=== PATIENT | male | born 1960 | race Caucasian/White ===

== ENCOUNTER 2017-10-05 18:24 | Emergency (ER) | payer MEDICARE, MEDICAID ==
[~2017-10-05] VITALS: Ht 185.4 cm; Wt 80.0 kg
[~2017-10-05 18:24] MED LIST: CARB200T PO; CLON2TAB PO; METH-356 PO; MULT-6 PO; OXYC5TAB3 PO
[2017-10-05 18:36] VITALS: BP 110/61
== END 2017-10-05 20:46 | disposition home or self-care (01) ==
LOC: ED 19:16
DX: F15.10 Other stimulant abuse, uncomplicated (principal); F41.9 Anxiety disorder, unspecified
CPT/HCPCS: 99283; 99284

== ENCOUNTER 2017-10-09 16:30 | Observation (INO) | payer MEDICARE, MEDICAID ==
[~2017-10-09] VITALS: Ht 185.4 cm; Wt 70.2 kg
[2017-10-09 17:17] LABS: BASOPHILS # (AUTO) 0.04 x10^3/uL (0-0.1); BASOPHILS % (AUTO) 1 % (0-1); EOSINOPHILS # (AUTO) 0.04 x10^3/uL (0-0.4); EOSINOPHILS % (AUTO) 1 % (1-7); LYMPHOCYTES # (AUTO) 1.54 x10^3/uL (1-3.4); LYMPHOCYTES % (AUTO) 19 % (22-44); MD NO; MEAN CORPUSCULAR HEMOGLOBIN 31.8 pg (27.5-34.5); MEAN CORPUSCULAR HGB CONC 33.5 g/dL (33.2-36.2); MEAN PLATELET VOLUME 7.8 fL (7.4-10.4); MONOCYTES # (AUTO) 1.09 x10^3/uL (0.2-0.8); MONOCYTES % (AUTO) 14 % (2-9); NEUTROPHILS # (AUTO) 5.32 x10^3/uL (1.8-6.8); NEUTROPHILS % (AUTO) 66 % (42-75); PLATELET COUNT 256 x10^3/uL (130-400); RED BLOOD COUNT 4.29 x10^6/uL (4.38-5.82); RED CELL DISTRIBUTION WIDTH 15.5 % (9.4-14.8)
[2017-10-09 17:22] LABS: CULTURE INDICATED? NO; MICROSCOPIC NOT IND
[2017-10-09 17:29] LABS: ALBUMIN 3.3 g/dL (3.4-5.0); ANION GAP 8 mmol/L (5-15); CALCIUM 8.8 mg/dL (8.5-10.1); CHLORIDE 102 mmol/L (98-107); CREATININE 0.88 mg/dL (0.7-1.3)
[2017-10-09 17:32] LABS: AMPHETAMINE SCREEN, URINE Negative (Negative); BARBITURATE SCREEN, URINE Negative (Negative); BENZODIAZEPINE SCREEN, URINE Negative (Negative); CANNABINOID SCREEN, URINE Negative (Negative); COCAINE SCREEN, URINE Negative (Negative); METHADONE SCREEN, URINE Negative (Negative); OPIATE SCREEN, URINE Positive (Negative)
[2017-10-09 17:35] LABS: ACETAMINOPHEN < 2 mcg/mL (10-30); SALICYLATE LEVEL < 1.7 mg/dL (2.8-20.0)
[2017-10-09] MEDS ORDERED: DOCUSATE 100 MG CAPSULE PO PRN (20:00)
[2017-10-09] MEDS ORDERED: ACETAMINOPHEN 325 MG TABLET PO PRN (20:00)
[2017-10-09] MEDS ORDERED: DIPHENHYDRAMINE 50 MG CAPSULE PO PRN (20:00)
[2017-10-09] MEDS ORDERED: PRAM0.5T5 PO (20:10)
[2017-10-09] MEDS ORDERED: ZIPRASIDONE 20 MG INJ IM ONE (21:25)
[2017-10-09] MEDS: PRAMIPEXOLE 0.5MG TABLET PO SCH (21:32)
[2017-10-09] MEDS: QUETIAPINE 25MG TABLET PO SCH (21:32)
[2017-10-09] MEDS: ZIPRASIDONE 20 MG INJ IM PRN (21:32)
[2017-10-10] MEDS ORDERED: ZIPRASIDONE 20 MG INJ IM ONE (06:22)
[2017-10-10] MEDS: ZIPRASIDONE 20 MG INJ IM PRN ×2 (06:29→23:16)
[2017-10-10] MEDS: PRAMIPEXOLE 0.5MG TABLET PO SCH (09:28)
[2017-10-10] MEDS: QUETIAPINE 25MG TABLET PO SCH ×2 (09:28→20:14)
[2017-10-10 19:27] VITALS: BP 103/68
[2017-10-11 07:37] VITALS: BP 123/80
[2017-10-11] MEDS: QUETIAPINE 25MG TABLET PO SCH (07:55)
[2017-10-11] MEDS: PRAMIPEXOLE 0.5MG TABLET PO SCH (07:56)
[2017-10-11] MEDS: QUETIAPINE 25MG TABLET PO PRN ×2 (09:38→15:15)
[2017-10-11] MEDS: DIPHENHYDRAMINE 50 MG CAPSULE PO PRN (09:38)
[2017-10-11] MEDS ORDERED: GUAIFENESIN 200 MG TABLET PO PRN (11:30)
[2017-10-11 19:18] VITALS: BP 113/67
[2017-10-11] MEDS: CARBAMAZEPINE 200 MG TABLET PO SCH (20:05)
[2017-10-11] MEDS: QUETIAPINE 100MG TABLET PO SCH (20:08)
[2017-10-12 07:08] VITALS: BP 110/62
[2017-10-12] MEDS: PRAMIPEXOLE 0.5MG TABLET PO SCH (08:18)
[2017-10-12] MEDS: CARBAMAZEPINE 200 MG TABLET PO SCH ×2 (08:18→20:54)
[2017-10-12 12:37] LABS: ALBUMIN 3.2 g/dL (3.4-5.0)
[2017-10-12 12:39] LABS: TOTAL PROTEIN 6.5 g/dL (6.4-8.2)
[2017-10-12] MEDS: GUAIFENESIN/DM 200-20MG, 10ML UDC PO PRN ×2 (14:20→21:13)
[2017-10-12] MEDS: LORazepam 1MG TABLET PO PRN (14:59)
[2017-10-12 20:13] VITALS: BP 110/70
[2017-10-12] MEDS: QUETIAPINE 100MG TABLET PO SCH (20:55)
[2017-10-13] MEDS: LORazepam 1MG TABLET PO PRN ×2 (05:59→15:39)
[2017-10-13] MEDS: GUAIFENESIN/DM 200-20MG, 10ML UDC PO PRN (06:00)
[2017-10-13 07:45] VITALS: BP 116/77
[2017-10-13] MEDS: PRAMIPEXOLE 0.5MG TABLET PO SCH (08:05)
[2017-10-13] MEDS: QUETIAPINE 25MG TABLET PO PRN (08:06)
[2017-10-13] MEDS: CARBAMAZEPINE 200 MG TABLET PO SCH ×2 (08:06→20:32)
[2017-10-13 20:02] VITALS: BP 115/71
[2017-10-13] MEDS: QUETIAPINE 100MG TABLET PO SCH (20:32)
[2017-10-14 07:52] VITALS: BP 117/74
[2017-10-14] MEDS: PRAMIPEXOLE 0.5MG TABLET PO SCH (08:21)
[2017-10-14] MEDS: CARBAMAZEPINE 200 MG TABLET PO SCH ×2 (08:21→20:04)
[2017-10-14] MEDS: GUAIFENESIN/DM 200-20MG, 10ML UDC PO PRN (08:24)
[2017-10-14 15:00] VITALS: BP 133/76
[2017-10-14] MEDS: LORazepam 1MG TABLET PO PRN (15:04)
[2017-10-14 19:53] VITALS: BP 122/72
[2017-10-14] MEDS: QUETIAPINE 100MG TABLET PO SCH (20:05)
[2017-10-15] MEDS: LORazepam 1MG TABLET PO PRN ×2 (03:40→09:19)
[2017-10-15] MEDS: GUAIFENESIN/DM 200-20MG, 10ML UDC PO PRN (03:44)
[2017-10-15 05:54] LABS: ANION GAP 5 mmol/L (5-15); CALCIUM 8.3 mg/dL (8.5-10.1); CHLORIDE 102 mmol/L (98-107)
[2017-10-15 05:55] LABS: CREATININE 0.76 mg/dL (0.7-1.3)
[2017-10-15 07:52] VITALS: BP 121/72
[2017-10-15] MEDS: PRAMIPEXOLE 0.5MG TABLET PO SCH (08:07)
[2017-10-15] MEDS: CARBAMAZEPINE 200 MG TABLET PO SCH ×2 (08:07→20:08)
[2017-10-15] MEDS: LORazepam 0.5MG TABLET PO PRN (18:02)
[2017-10-15 19:29] VITALS: BP 117/67
[2017-10-15] MEDS: QUETIAPINE 100MG TABLET PO SCH (20:08)
[2017-10-16] MEDS: DIPHENHYDRAMINE 50 MG CAPSULE PO PRN ×2 (04:40→14:57)
[2017-10-16 07:21] VITALS: BP 120/84
[2017-10-16] MEDS: CARBAMAZEPINE 200 MG TABLET PO SCH ×2 (09:54→20:08)
[2017-10-16] MEDS: PRAMIPEXOLE 0.5MG TABLET PO SCH (09:54)
[2017-10-16 20:00] VITALS: BP 113/69
[2017-10-16] MEDS: LORazepam 0.5MG TABLET PO PRN (20:08)
[2017-10-16] MEDS ORDERED: QUETIAPINE 100MG TABLET PO SCH (21:00)
[2017-10-17] MEDS: GUAIFENESIN/DM 200-20MG, 10ML UDC PO PRN (04:19)
[2017-10-17 07:02] VITALS: BP 125/77
[2017-10-17] MEDS: CARBAMAZEPINE 200 MG TABLET PO SCH ×2 (08:36→20:08)
[2017-10-17] MEDS: PRAMIPEXOLE 0.5MG TABLET PO SCH (08:36)
[2017-10-17 19:39] VITALS: BP 111/68
[2017-10-17] MEDS ORDERED: QUETIAPINE 100MG TABLET PO SCH (21:00)
[2017-10-18 07:18] VITALS: BP 104/70
[2017-10-18] MEDS: PRAMIPEXOLE 0.5MG TABLET PO SCH (08:11)
[2017-10-18] MEDS: CARBAMAZEPINE 200 MG TABLET PO SCH (08:11)
[2017-10-18] MEDS ORDERED: LORA-445 PO (10:56)
[2017-10-18] MEDS ORDERED: CARB200T4 PO (10:56)
[2017-10-18] MEDS ORDERED: QUET100T PO (10:56)
== END 2017-10-18 12:30 ==
LOC: ED 17:02 → EDIP 18:02 → 2N 10-10 18:07
PROVIDERS: ADMIT Internal Medicine; ATTEND Internal Medicine
DX: R45.851 Suicidal ideations (principal); F33.2 Major depressive disorder, recurrent severe without psychotic features; F31.81 Bipolar II disorder; G89.29 Other chronic pain; M54.9 Dorsalgia, unspecified; F11.90 Opioid use, unspecified, uncomplicated; D64.9 Anemia, unspecified; E87.1 Hypo-osmolality and hyponatremia; E44.1 Mild protein-calorie malnutrition; F17.200 Nicotine dependence, unspecified, uncomplicated; Z81.1 Family history of alcohol abuse and dependence
CPT/HCPCS: 36415; 71045; 80048; 80307; 80329; 81003; 82040; 84155; 85025; 96372; 99285; G0378; J3486; G0480

== ENCOUNTER 2017-11-21 18:12 | Emergency (ER) | payer MEDICARE, MEDICAID ==
[~2017-11-21] VITALS: Ht 180.3 cm; Wt 77.5 kg
[~2017-11-21 18:12] MED LIST changes: +CARB200T4 PO; +LORA-445 PO; +PRAM0.5T5 PO; +QUET100T PO
[2017-11-21] MEDS ORDERED: hydrOXYzine 50 MG/ML IM PRN (18:30)
[2017-11-21] MEDS ORDERED: DIAZEPAM 5 MG TABLET PO ONE (18:30)
[2017-11-21] MEDS ORDERED: DIAZEPAM 5 MG TABLET ONE (18:45)
[2017-11-21 20:03] VITALS: BP 129/79
== END 2017-11-21 20:07 | disposition home or self-care (01) ==
LOC: ED 19:38
DX: M54.5 Low back pain (principal); G89.29 Other chronic pain
CPT/HCPCS: 96372; 99283; J3410

== ENCOUNTER 2018-03-15 12:12 | Emergency (ER) | payer MEDICARE, MEDICAID ==
[~2018-03-15] VITALS: Ht 180.3 cm; Wt 77.4 kg
[2018-03-15 12:21] VITALS: BP 92/60
[2018-03-15] MEDS ORDERED: HYDROmorphone 2 MG/ML, 1ML ONE (13:11)
[2018-03-15] MEDS ORDERED: KETOROLAC 30 MG/1 ML ONE (13:12)
[2018-03-15] MEDS ORDERED: KETOROLAC 30 MG/1 ML IM ONE (13:30)
[2018-03-15] MEDS ORDERED: HYDROmorphone 1 MG/ML, 1ML IM ONE (13:30)
== END 2018-03-15 14:10 | disposition home or self-care (01) ==
LOC: ED 13:13
DX: M54.5 Low back pain (principal); F20.9 Schizophrenia, unspecified; F32.9 Major depressive disorder, single episode, unspecified; F17.200 Nicotine dependence, unspecified, uncomplicated
CPT/HCPCS: 96372; 99284; J1170; J1885

== ENCOUNTER 2018-04-06 23:49 | Observation (INO) | payer MEDICARE, MEDICAID ==
[~2018-04-06] VITALS: Ht 182.9 cm; Wt 81.8 kg
[2018-04-07 00:06] VITALS: BP 119/82
[2018-04-07 00:07] LABS: BASOPHILS # (AUTO) 0.03 x10^3/uL (0-0.1); BASOPHILS % (AUTO) 1 % (0-1); EOSINOPHILS # (AUTO) 0.06 x10^3/uL (0-0.4); EOSINOPHILS % (AUTO) 1 % (1-7); LYMPHOCYTES # (AUTO) 0.85 x10^3/uL (1-3.4); LYMPHOCYTES % (AUTO) 16 % (22-44); MD NO; MEAN CORPUSCULAR HEMOGLOBIN 31.6 pg (27.5-34.5); MEAN CORPUSCULAR HGB CONC 33.4 g/dL (33.2-36.2); MEAN CORPUSCULAR VOLUME 94.6 fL (81-97); MEAN PLATELET VOLUME 8.1 fL (7.4-10.4); MONOCYTES # (AUTO) 0.87 x10^3/uL (0.2-0.8); MONOCYTES % (AUTO) 17 % (2-9); NEUTROPHILS # (AUTO) 3.36 x10^3/uL (1.8-6.8); NEUTROPHILS % (AUTO) 65 % (42-75); PLATELET COUNT 255 x10^3/uL (130-400); RED BLOOD COUNT 4.12 x10^6/uL (4.38-5.82); RED CELL DISTRIBUTION WIDTH 14.8 % (9.4-14.8)
[2018-04-07 00:16] LABS: ALANINE AMINOTRANSFERASE 33 U/L (12-78); ANION GAP 10 mmol/L (5-15); CALCIUM 9.2 mg/dL (8.5-10.1); CHLORIDE 110 mmol/L (98-107); CREATININE 0.92 mg/dL (0.7-1.3); SALICYLATE LEVEL < 1.7 mg/dL (2.8-20.0)
[2018-04-07 00:18] LABS: ALKALINE PHOSPHATASE 111 U/L (45-117); BILIRUBIN,TOTAL 0.5 mg/dL (0.2-1.0); TOTAL PROTEIN 7.5 g/dL (6.4-8.2)
[2018-04-07 00:19] LABS: ACETAMINOPHEN < 2 mcg/mL (10-30)
[2018-04-07] MEDS ORDERED: QUETIAPINE 25MG TABLET PO PRN (04:30)
[2018-04-07] MEDS ORDERED: DOCUSATE 100 MG CAPSULE PO PRN (04:30)
[2018-04-07] MEDS ORDERED: ONDANSETRON ODT 4 MG PO PRN (04:30)
[2018-04-07] MEDS ORDERED: ACETAMINOPHEN 325 MG TABLET PO PRN (04:30)
[2018-04-07] MEDS ORDERED: QUETIAPINE 100MG TABLET PO SCH (04:30)
[2018-04-07] MEDS ORDERED: PRAMIPEXOLE 0.5MG TABLET PO SCH (04:30)
[2018-04-07] MEDS ORDERED: LORazepam 0.5MG TABLET PO PRN (04:30)
[2018-04-07] MEDS ORDERED: CARBAMAZEPINE 200 MG TABLET PO SCH (04:30)
[2018-04-07] MEDS ORDERED: CARBAMAZEPINE 200 MG TABLET ONE (06:08)
[2018-04-07] MEDS ORDERED: QUETIAPINE 100MG TABLET ONE (06:09)
== END 2018-04-07 08:30 ==
LOC: ED 23:59 → EDIP 04-07 01:35
PROVIDERS: ADMIT Internal Medicine; ATTEND Internal Medicine
DX: F29 Unspecified psychosis not due to a substance or known physiological condition (principal); F31.60 Bipolar disorder, current episode mixed, unspecified; F20.9 Schizophrenia, unspecified; F43.10 Post-traumatic stress disorder, unspecified; G25.81 Restless legs syndrome; G40.909 Epilepsy, unspecified, not intractable, without status epilepticus; Z91.14 Patient's other noncompliance with medication regimen
CPT/HCPCS: 36415; 80053; 80307; 80329; 84443; 85025; 99285; G0378; G0480

== ENCOUNTER 2018-04-24 17:17 | Emergency (ER) | payer MEDICARE, MEDICAID ==
[~2018-04-24] VITALS: Ht 180.3 cm; Wt 71.0 kg
[2018-04-24 20:00] VITALS: BP 125/74
== END 2018-04-24 20:40 | disposition home or self-care (01) ==
LOC: ED 20:34
DX: G89.29 Other chronic pain (principal); M54.9 Dorsalgia, unspecified; L55.1 Sunburn of second degree; F20.9 Schizophrenia, unspecified; G40.909 Epilepsy, unspecified, not intractable, without status epilepticus; R20.0 Anesthesia of skin; F10.20 Alcohol dependence, uncomplicated; Z72.89 Other problems related to lifestyle; Z91.14 Patient's other noncompliance with medication regimen; Z60.9 Problem related to social environment, unspecified; Z59.0 Homelessness
CPT/HCPCS: 99283

== ENCOUNTER 2018-09-07 14:39 | Observation (INO) | payer MEDICARE, MEDICAID ==
[~2018-09-07] VITALS: Ht 180.3 cm; Wt 68.2 kg
[2018-09-07] MEDS ORDERED: ZIPRASIDONE 20MG CAPSULE PO ONE ×2 (15:00→16:00)
[2018-09-07] MEDS ORDERED: PLEASE ENTER HEIGHT AND WEIGHT MC SCH (15:00)
[2018-09-07 15:12] LABS: BASOPHILS # (AUTO) 0.02 x10^3/uL (0-0.1); BASOPHILS % (AUTO) 0 % (0-1); EOSINOPHILS # (AUTO) 0.12 x10^3/uL (0-0.4); EOSINOPHILS % (AUTO) 2 % (1-7); LYMPHOCYTES # (AUTO) 1.42 x10^3/uL (1-3.4); LYMPHOCYTES % (AUTO) 28 % (22-44); MD NO; MEAN CORPUSCULAR HEMOGLOBIN 32.7 pg (27.5-34.5); MEAN CORPUSCULAR VOLUME 96.2 fL (81-97); MEAN PLATELET VOLUME 8.5 fL (7.4-10.4); MONOCYTES # (AUTO) 0.81 x10^3/uL (0.2-0.8); MONOCYTES % (AUTO) 16 % (2-9); NEUTROPHILS # (AUTO) 2.81 x10^3/uL (1.8-6.8); NEUTROPHILS % (AUTO) 54 % (42-75); PLATELET COUNT 182 x10^3/uL (130-400); RED BLOOD COUNT 3.94 x10^6/uL (4.38-5.82); RED CELL DISTRIBUTION WIDTH 14.1 % (9.4-14.8)
[2018-09-07 15:20] LABS: ALBUMIN 3.4 g/dL (3.4-5.0); ANION GAP 5 mmol/L (5-15); CALCIUM 8.2 mg/dL (8.5-10.1); CHLORIDE 100 mmol/L (98-107)
[2018-09-07 15:23] LABS: ALANINE AMINOTRANSFERASE 39 U/L (12-78); ALKALINE PHOSPHATASE 98 U/L (45-117); BILIRUBIN,TOTAL 0.2 mg/dL (0.2-1.0); CREATININE 0.81 mg/dL (0.7-1.3); TOTAL PROTEIN 6.7 g/dL (6.4-8.2)
[2018-09-07 15:28] LABS: ACETAMINOPHEN < 2 mcg/mL (10-30); SALICYLATE LEVEL < 1.7 mg/dL (2.8-20.0)
[2018-09-07] MEDS ORDERED: ZIPRASIDONE 20MG CAPSULE ONE ×2 (15:52→15:57)
[2018-09-07 16:16] LABS: AMPHETAMINE SCREEN, URINE Negative (Negative); BARBITURATE SCREEN, URINE Negative (Negative); BENZODIAZEPINE SCREEN, URINE Negative (Negative); CANNABINOID SCREEN, URINE Negative (Negative); COCAINE SCREEN, URINE Negative (Negative); METHADONE SCREEN, URINE Negative (Negative); OPIATE SCREEN, URINE Negative (Negative)
[2018-09-07] MEDS ORDERED: ACETAMINOPHEN 325 MG TABLET PO PRN (19:30)
[2018-09-07] MEDS ORDERED: DOCUSATE 100 MG CAPSULE PO PRN (19:30)
[2018-09-07] MEDS ORDERED: ZIPRASIDONE 20MG CAPSULE PO PRN (19:30)
[2018-09-07] MEDS ORDERED: DIPHENHYDRAMINE 50 MG CAPSULE PO PRN (19:30)
[2018-09-07 20:15] VITALS: BP 158/77
[2018-09-07] MEDS ORDERED: QUETIAPINE 100MG TABLET PO SCH (21:00)
[2018-09-07] MEDS ORDERED: PRAMIPEXOLE 0.5MG TABLET PO SCH (21:00)
[2018-09-07] MEDS ORDERED: CARBAMAZEPINE 200 MG TABLET PO SCH ×2 (21:00→22:30)
[2018-09-07] MEDS: QUETIAPINE 100MG TABLET PO SCH ×2 (21:00→21:11)
[2018-09-07 23:54] VITALS: BP 110/64
[2018-09-08 08:00] VITALS: BP 109/74
== END 2018-09-08 13:30 ==
LOC: ED 15:16 → SUATTDRO 19:01 → EDIP 19:03 → INTOOBSV 19:03 → 2N 19:52
PROVIDERS: ADMIT Family Medicine; ATTEND Family Medicine
DX: R45.851 Suicidal ideations (principal); F31.9 Bipolar disorder, unspecified; F20.9 Schizophrenia, unspecified; G89.29 Other chronic pain; J00 Acute nasopharyngitis [common cold]; G40.909 Epilepsy, unspecified, not intractable, without status epilepticus; G25.81 Restless legs syndrome; Z87.891 Personal history of nicotine dependence; Z91.14 Patient's other noncompliance with medication regimen
CPT/HCPCS: 36415; 71045; 80053; 80307; 80329; 85025; 93005; 99284; G0378; G0480

== ENCOUNTER 2019-11-20 12:05 | Emergency (ER) | payer MEDICARE, MEDICAID ==
[~2019-11-20] VITALS: Ht 180.3 cm; Wt 74.0 kg
[~2019-11-20 12:05] MED LIST changes: -METH-356 PO; +METH10TA2 PO
--- NOTE | 2019-11-20 12:43 | NUR ---
PT WITH SI. PT STATES HE DOESNT WANT TO LIVE ANYMORE, PT PLAN TO SHOOT HIMSELF WITH HIS GUN. PT STATES HE HAS BEEN FEELING REALLY BAD AND NEEDS HELP. PT WITH PREVIOUS HX OF SA/SI. HX OF BIPOLAR, PT DENIES SCHIZ ALTHOUGH IN PREVIOUS CHART. PT STATES NOT CURRENTLY ON MEDICATIONS PT TO SECURE RM, BELONGINGS (1 PT BELONGING BAG) PLACED IN SECURE LOCKER. GLUING CREW LEADER MADE AWARE OF NEED FOR SITTER
[2019-11-20 12:54] LABS: BASOPHILS # (AUTO) 0.02 x10^3/uL (0-0.1); BASOPHILS % (AUTO) 0 % (0-1); EOSINOPHILS # (AUTO) 0.14 x10^3/uL (0-0.4); EOSINOPHILS % (AUTO) 3 % (1-7); LYMPHOCYTES # (AUTO) 1.29 x10^3/uL (1-3.4); LYMPHOCYTES % (AUTO) 23 % (22-44); MD NO; MEAN CORPUSCULAR HEMOGLOBIN 31.2 pg (27.5-34.5); MEAN CORPUSCULAR HGB CONC 32.7 g/dL (33.2-36.2); MEAN CORPUSCULAR VOLUME 95.3 fL (81-97); MEAN PLATELET VOLUME 7.3 fL (7.4-10.4); MONOCYTES # (AUTO) 0.61 x10^3/uL (0.2-0.8); MONOCYTES % (AUTO) 11 % (2-9); NEUTROPHILS # (AUTO) 3.61 x10^3/uL (1.8-6.8); NEUTROPHILS % (AUTO) 64 % (42-75); PLATELET COUNT 240 x10^3/uL (130-400); RED BLOOD COUNT 3.96 x10^6/uL (4.38-5.82); RED CELL DISTRIBUTION WIDTH 14.6 % (9.4-14.8)
[2019-11-20 13:07] LABS: ALBUMIN 3.4 g/dL (3.4-5.0); ANION GAP 5 mmol/L (5-15); CALCIUM 8.6 mg/dL (8.5-10.1); CHLORIDE 103 mmol/L (98-107)
[2019-11-20 13:20] LABS: ALANINE AMINOTRANSFERASE 47 U/L (12-78); ALKALINE PHOSPHATASE 111 U/L (45-117); BILIRUBIN,TOTAL 0.4 mg/dL (0.2-1.0); CREATININE 0.71 mg/dL (0.7-1.3); TOTAL PROTEIN 6.9 g/dL (6.4-8.2)
[2019-11-20 13:23] LABS: SALICYLATE LEVEL < 1.7 mg/dL (2.8-20.0)
[2019-11-20 13:39] LABS: AMPHETAMINE SCREEN, URINE Positive (Negative); BARBITURATE SCREEN, URINE Negative (Negative); BENZODIAZEPINE SCREEN, URINE Negative (Negative); CANNABINOID SCREEN, URINE Negative (Negative); COCAINE SCREEN, URINE Negative (Negative); METHADONE SCREEN, URINE Negative (Negative); OPIATE SCREEN, URINE Negative (Negative)
--- NOTE | 2019-11-20 18:06 | NUR ---
DENIED BY [facility]. PACKET FAXED TO [facility], [facility] AND [facility]
--- NOTE | 2019-11-20 19:00 | NUR ---
Assumed care of pt from Lavonne BLOOD.
--- NOTE | 2019-11-20 19:01 | NUR ---
TP: PT NOT ACCEPTED BY [facility]
--- NOTE | 2019-11-20 19:56 | NUR ---
Pt continues to sleep.
--- NOTE | 2019-11-20 22:57 | NUR ---
Pt now awake and requesting food. Pt given yeyo crackers and juice. When asked if he currerntly wants to hurt himself, pt stated "I'm not thinking about that right now".
--- NOTE | 2019-11-21 05:45 | NUR ---
Pt assessed for SI. Pt denies any current SI but states he has "a black cloud of depression over my head".
--- NOTE | 2019-11-21 07:00 | NUR ---
assumed care of pt. report from Zi BLOOD. pt here for SI. per report, pt has a plan of suicide by copy technician. pt is currently sleeping with sitter present. room secure. awaiting psych placement
--- NOTE | 2019-11-21 07:20 | NUR ---
p is awake and has walked to the BR without difficulty. pt reports that he is still suicidal and that he feels very depressed. pt reports that he has a hx of bipolar disorder bu is non-compliant with meds. denies hallucinations/delusions. reports that he has a hx of suicide attempt x2 by cuting a pill OD. pt updated on POC and aware that he is awaiting placement. no family at bedside. sitter present and room secure.
--- NOTE | 2019-11-21 08:30 | NUR ---
meal tray has been delivered. sitte present. room secure
--- NOTE | 2019-11-21 09:03 | NUR ---
pt resting in position of comfort
--- NOTE | 2019-11-21 10:00 | NUR ---
no changes. pt resting quietly in position of comfort. room secure. sitter present
--- NOTE | 2019-11-21 11:00 | NUR ---
no changes. pt sitting up in room. no apparent distress. PO snack given. room secure. sitter present
--- NOTE | 2019-11-21 12:00 | NUR ---
p very anxious. attempting to calm pt. pt updated on POC. awaiing meal tray. room secure. siter present
--- NOTE | 2019-11-21 12:10 | NUR ---
report to Estelita BLOOD for lunch
--- NOTE | 2019-11-21 12:50 | NUR ---
care of this pt has been assumed by Jimmy BLOOD. report given
[2019-11-21] MEDS ORDERED: CARBAMAZEPINE 200 MG TABLET ONE ×2 (12:54→21:12)
[2019-11-21] MEDS: CARBAMAZEPINE 200 MG TABLET PO SCH ×3 (12:57→21:27)
--- NOTE | 2019-11-21 12:58 | NUR ---
DENIED BY [facility]
[2019-11-21] MEDS ORDERED: CLON2TAB PO ×2 (12:59)
[2019-11-21] MEDS ORDERED: HYDR50SY PO (13:01)
[2019-11-21] MEDS ORDERED: QUET400T PO (13:59)
--- NOTE | 2019-11-21 14:47 | NUR ---
AMBULATED PATIENT IN HALLWAY. PATIENT COMPLAINED OF BACK PAIN BUT WAS STEADY ON HIS FEET. ASH AMEZCUA NOTIFIED.
--- NOTE | 2019-11-21 17:05 | NUR ---
PT PUT ON HOSPITAL BED FOR COMFORT.
--- NOTE | 2019-11-21 19:11 | NUR ---
Received call from pt's mother. Mother asking "when will he be admitted to the hospital?". With pt's permission, mother was informed pt will be observed in ED overnight and evaluated in the morning again.
--- NOTE | 2019-11-21 20:07 | NUR ---
Suicide reassessment performed. Pt states "I feel like I have a black cloud over my head". When asked if he intends to harm himself pt states "not here".
[2019-11-21] MEDS ORDERED: hydrOXyzine 50MG TABLET ONE (21:25)
--- NOTE | 2019-11-21 21:43 | NUR ---
Pt given ordered nightly meds. Pt now stating "I want to kill myself". When asked about a plan pt stated "I want to get someone to shoot me".
--- NOTE | 2019-11-22 00:19 | NUR ---
COvering primary nurse. Pt resting quietly, sitter outside room for pt safety.
--- NOTE | 2019-11-22 00:48 | NUR ---
Pt continues to sleep.
--- NOTE | 2019-11-22 07:52 | NUR ---
PT RESTING IN ROOM, SITTING IN CHAIR. SAFETY PRECAUTIONS IN PLACE.
[2019-11-22] MEDS ORDERED: CARBAMAZEPINE 200 MG TABLET ONE (08:04)
--- NOTE | 2019-11-22 08:10 | NUR ---
MEAL TRAY PROVIDED
[2019-11-22] MEDS: CARBAMAZEPINE 200 MG TABLET PO SCH (08:11)
--- NOTE | 2019-11-22 10:00 | NUR ---
SNACKS PROVIDED, SAFETY PRECAUTIONS IN PLACE
--- NOTE | 2019-11-22 11:55 | NUR ---
PT STATES INCREASING ANXIETY. PRN PROVIDED. MEAL PROVIDED. SAFETY PRECAUTIONS IN PLACE.
--- NOTE | 2019-11-22 12:54 | NUR ---
GOLDIE DIRECTOR GOVERNMENT AT BEDSIDE
--- NOTE | 2019-11-22 13:14 | NUR ---
BREAK RN: PER GOLDIE, DOG TRACK KENNEL MANAGER HOLD IS TO BE LIFTED AND PT IS TO BE DISCHARGED. PATIENT AWARE.
[2019-11-22 13:33] VITALS: BP 109/68
--- NOTE | 2019-11-22 13:34 | NUR ---
BREAK RN: PT DISCHARGED PER DR CABRALES AND CHONG AMEZCUA. PT GIVEN HIS PRESCRPTIONS, BUT REFUSED TO WAIT FOR HIS WRITTEN DISCHARGE INSTRUCTIONS. VERBAL INSTRUCTIONS GIVEN. PT REPORTS HIS MOTHER IS WAITING FOR HIM TO GIVE HIM A RIDE HOME AND HE CAN'T WAIT. PT DENIES SI. PT DISCHARGED.
== END 2019-11-22 13:37 | disposition home or self-care (01) ==
LOC: ED 14:36
DX: R45.851 Suicidal ideations (principal); F15.10 Other stimulant abuse, uncomplicated; F20.9 Schizophrenia, unspecified
CPT/HCPCS: 36415; 80053; 80307; 85025; 99284; Q0177